=== PATIENT | male | born 1995 | race Caucasian/White ===

== ENCOUNTER 2017-06-20 03:37 | Emergency (ER) | payer MEDICAID, SELFPAY ==
[2017-06-20 03:38] VITALS: BP 126/68; PULSE 74; RESP 18; TEMP 36.5; O2SAT 97; BMI 24.5
--- NOTE | 2017-06-20 03:54 | ED.VISSUMM ---
- ER Visit Summary Date of Service: 06/20/17 Chief Complaint: [] Left lower dental pain History of Present Illness: The patient is a 22 M complaining of left lower dental pain since yesterday morning gradual onset. No drainage. No home treatment Physical Examination: Vital signs reviewed General: Well-nourished well-developed Head: Normocephalic atraumatic Eyes: Pupils equal round and reactive to light extraocular movements intact ENT: TMs clear no hemotympanum no trauma Left lower second premolar has a large cavity with mild swelling to the gingiva. Neck: Nontender full range of motion Cardiovascular: Regular rate rhythm no murmurs normal S1-S2 Respiratory: No distress clear to auscultation bilaterally chest nontender Abdomen: Soft nontender nondistended normal bowel sounds no masses Back: Nontender no CVA tenderness Extremities: Nontender active range of motion ?4 extremities no trauma Skin: Normal color no trauma Neuro alert oriented cranial nerves II through XII intact normal strength sensation reflexes Test Results: [] Emergency Department Course and Treatment: [] Placed on amoxicillin given a shot of Toradol. We will continue anti-inflammatories. Will follow-up with dentistry. At this time he likely has a periapical abscess Treatment Plan: [] Disposition: [] Impression: [] Periapical abscess This note was generated with [employer] dictation software. It may contain incorrect words, spelling, and punctuation that were not noted in review of the chart prior to signing ED Disposition - Plan for ED Patient: Chief Complaint: Dental Referrals: Care Physician,No Primary [Primary Care Provider] -
--- NOTE | 2017-06-20 03:55 | ED.DEP ---
ED Disposition - Plan for ED Patient: Disposition: Home or Assisted Living Chief Complaint: Dental Instructions: ED Abscess Dental Prescriptions: Amoxicillin 500 mg PO TID #30 tab Referrals: Care Physician,No Primary [Primary Care Provider] -
[2017-06-20] MEDS: AMOXICILLIN 500 MG CAPSULE PO (04:18)
[2017-06-20] MEDS: Ketorolac 60 MG/2 ML Vial IM (04:18)
[2017-06-20 04:38] VITALS: BP 126/68; PULSE 74; RESP 18; TEMP 36.5; O2SAT 97
== END 2017-06-20 04:40 | disposition home or self-care (01) ==
PROVIDERS: Emergency Provider Emergency Medicine
DX: K04.7 Periapical abscess without sinus (principal); K02.9 Dental caries, unspecified; Z72.0 Tobacco use
CPT/HCPCS: 96372; 99282

== ENCOUNTER → 2017-09-04 18:24 | Outpatient (CLI) | payer MEDICAID, SELFPAY ==
[2017-09-04 20:10] LABS: Chlamydia Trachomatis by PCR Negative (Negative); Neisserai gonorrhoeae by PCR Negative (Negative); Probe Check PASS; Sample Adequacy Control PASS; Specimen Processing Control PASS
== END ==
PROVIDERS: Visit Provider Family Medicine
DX: R30.0 Dysuria (principal)
CPT/HCPCS: 87491; 87591

== ENCOUNTER 2018-06-09 17:02 | Emergency (ER) | payer SELFPAY ==
[2018-06-09 17:02] VITALS: BP 145/78; PULSE 78; RESP 16; TEMP 36.7; O2SAT 100; BMI 26.1
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
[2018-06-09] MEDS: Naproxen 500 MG Tablet PO (19:18)
== END 2018-06-09 20:47 | disposition home or self-care (01) ==
LOC: ED 19:02
PROVIDERS: Emergency Provider Emergency Medicine
DX: K04.7 Periapical abscess without sinus (principal)
CPT/HCPCS: 99283; A4216

== ENCOUNTER 2018-08-13 07:25 | Emergency (ER) | payer MEDICAID, SELFPAY ==
[2018-08-13 07:26] VITALS: BP 175/74; PULSE 92; RESP 17; TEMP 36.7; O2SAT 97; BMI 26.3
[2018-08-13 08:47] LABS: AST(SGOT) 47 U/L (15-37); Alanine Aminotransfer ALT/SGPT 82 U/L (16-61); Albumin, Serum 4.2 g/dL (3.2-5.0); Alkaline Phosphatase 71 U/L (45-117); Anion Gap 5 (5-15); BUN 14 mg/dL (7-18); BUN/Creat Ratio 13.9 RATIO (10-20); Bilirubin, Direct 0.19 mg/dL (0.00-0.30); Chloride 104 mmol/L (98-107); Creatinine, Serum 1.01 mg/dL (0.70-1.30); EST Glomerular Filtration Rate 99 mL/min (>60); Est Glom Filt Rate - Afr Amer 120 mL/min (>60); Estimated Creatinine Clearance 134.51 ml/min; Globulin 3.5 g/dL (2.2-4.2); Glucose 109 mg/dL (74-106); Lipase 95 U/L (73-393); Protein, Total 7.7 g/dL (6.4-8.2); Sodium Level 138 mmol/L (136-145)
[2018-08-13] MEDS: Ondansetron 4 MG/2 ML Vial IV (08:49)
[2018-08-13] MEDS: 0.9% Normal Saline 1,000 ML 1000 ML IV (08:49)
[2018-08-13] MEDS: Dicyclomine 20 MG/2 ML Vial IM (08:50)
--- NOTE | 2018-08-13 08:57 | ED.DCSUM_ITS ---
- ER Visit Summary Date of Service: 08/13/18 Chief Complaint: Nausea, vomiting, diarrhea History of Present Illness: The patient is a 23 M reports onset of GI symptoms around 1 AM this morning. He states his abdomen feels like his rolling. He denies fever or chills. He ate sausage and shrimp last night at a local restaurant is not sure if he may have food poisoning. No one else at home is been sick. Physical Examination: Blood pressure is 175/74, otherwise vitals normal. Patient lying in bed no acute distress. He is nontoxic-appearing. Head neck examination unremarkable. He has moist mucous membranes. Heart is regular rate and rhythm. Lung sounds are clear. Abdomen is soft with no focal tenderness to palpation. Active bowel sounds are noted. Test Results: CBC is pending. Chemistry studies unremarkable. LFTs significant only for an ALT of 82 and AST of 47. Lipase is normal. Emergency Department Course and Treatment: Patient was given IV fluids, Zofran, and Bentyl. At this time patient does not want to wait for his test results. He requests discharge medially after the medications are given. I discussed with him and significant other at bedside. I offered to write him nausea medicine for home. If he worsens he will return. Treatment Plan: [] Disposition: Discharge Impression: Gastroenteritis This note was generated with [employer] dictation software. It may contain incorrect words, spelling, and punctuation that were not noted in review of the chart prior to signing ED Disposition - Plan for ED Patient: Disposition: Home or Assisted Living Instructions: ED Food Poison Or Gastroenteritis Prescriptions: Ondansetron [Zofran Odt] 4 mg PO Q8H PRN PRN #10 tablet PRN Reason: Nausea Dicyclomine HCl [Bentyl] 20 mg PO TIDAC #20 capsule Referrals: Danny Aldana MD [STAFF PHYSICIAN] - As Needed
[2018-08-13 09:05] LABS: Absolute Lymphocyte Count 0.57 X10^3/ul (0.83-4.51); Absolute Neutrophil Count 11.8 X10^3/uL (2.0-7.7); Basophil# 0.01 X10^3/uL; Basophil% 0.1 % (0-1); Eosinophil# 0.07 X10^3/uL; Eosinophils% 0.5 % (0-5); Hematocrit 48.2 % (40-54); Hemoglobin 16.8 g/dl (13.0-16.5); Lymphocyte # 0.57 X10^3/ul (4.0); Lymphocyte % 4.3 % (19-41); Mean Corp Hgb Conc 34.9 g/gl (32-36); Mean Corpuscular Hgb 30.6 pg (27.0-32.0); Mean Corpuscular Volume 87.8 fL (80-94); Mean Platelet Vol. 11.8 fl (6.2-12.0); Monocyte# 0.64 X10^3/uL; Monocyte% 4.9 % (0-10); Neutrophil # 11.81 X10^3/uL (2.7-7.7); Platelet Count 155 K/mm3 (150-450); RBC Distribution Width CV 13.3 % (11.6-14.6); RBC Distribution Width SD 42.6 fl (35.1-43.9); Red Blood Count 5.49 M/mm3 (4.6-6.2); White Blood Count 13.1 K/mm3 (4.4-11.0)
[2018-08-13 09:08] LABS: Differential Indicated SCAN CRITERIA MET; POSITIVE COUNT NO; POSITIVE DIFFERENTIAL YES; POSITIVE MORPHOLOGY NO
== END 2018-08-13 09:08 | disposition home or self-care (01) ==
PROVIDERS: Emergency Provider Emergency Medicine
DX: K52.9 Noninfective gastroenteritis and colitis, unspecified (principal); F32.9 Major depressive disorder, single episode, unspecified; Z72.0 Tobacco use
CPT/HCPCS: 80048; 80076; 83690; 85025; 96372; 96374; 99283; J2405

== ENCOUNTER 2018-08-19 01:04 | Emergency (ER) | payer MEDICAID, SELFPAY ==
[2018-08-19 01:05] VITALS: BP 126/87; PULSE 94; RESP 148; TEMP 36.9; O2SAT 98; BMI 25.9
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
[2018-08-19] MEDS: Ondansetron 4 MG/2 ML Vial IV (01:20)
[2018-08-19] MEDS: Morphine 4 MG/ML Syringe IV (01:20)
[2018-08-19] MEDS: Diphth,Pertuss(Acell),Tet Vac 0.5 ML Vial IM (01:22)
[2018-08-19] MEDS: Cefazolin 1 GM/50 ML BAG IV (01:32)
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
[2018-08-19 01:57] VITALS: BP 120/63; PULSE 88; RESP 16; O2SAT 100
== END 2018-08-19 01:57 | disposition home or self-care (01) ==
PROVIDERS: Emergency Provider Emergency Medicine
DX: S21.111A Laceration without foreign body of right front wall of thorax without penetration into thoracic cavity, initial encounter (principal); W26.9XXA Contact with unspecified sharp object(s), initial encounter; Y93.9 Activity, unspecified; Y92.9 Unspecified place or not applicable; Z72.0 Tobacco use
CPT/HCPCS: 12001; 71046; 90471; 90715; 96365; 96374; 96375; 99283; A4216; J2405

== ENCOUNTER 2018-09-03 21:13 | Emergency (ER) | payer MEDICAID, SELFPAY ==
[2018-09-03 21:13] VITALS: BP 140/82; PULSE 63; RESP 15; TEMP 36.8; O2SAT 100; BMI 24.3
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
--- NOTE | 2018-09-03 22:04 | EKG12_ITS ---
Test Reason : Blood Pressure : / mmHG Vent. Rate : 068 BPM Atrial Rate : 068 BPM P-R Int : 142 ms QRS Dur : 088 ms QT Int : 398 ms P-R-T Axes : 076 071 038 degrees QTc Int : 423 ms Normal sinus rhythm Normal ECG Confirmed by RYLAN SARAVIA, OLESYA ([id number]), editor managing newspaper THIAGO DAILEY ([id number]) on 09/05/2018 7:53:04 AM Referred By: ISAIAH Confirmed By:OLESYA FAGAN MD
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
[2018-09-03 22:11] VITALS: BP 114/69; PULSE 69; RESP 15; O2SAT 98
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
[2018-09-03] MEDS: Naproxen 500 MG Tablet PO (23:09)
[2018-09-03] MEDS: Ondansetron ODT 4 MG Tablet PO (23:10)
== END 2018-09-03 23:12 | disposition home or self-care (01) ==
LOC: ED 23:06
PROVIDERS: Emergency Provider Emergency Medicine
DX: R55 Syncope and collapse (principal); S09.93XA Unspecified injury of face, initial encounter; S06.0X9A Concussion with loss of consciousness of unspecified duration, initial encounter; R11.0 Nausea; Y04.2XXA Assault by strike against or bumped into by another person, initial encounter; Y93.9 Activity, unspecified; Y92.9 Unspecified place or not applicable
CPT/HCPCS: 70450; 70486; 72125; 93005; 99283